=== PATIENT | male | born 1980 | race Caucasian/White ===

== ENCOUNTER 2017-03-20 15:07 | Emergency (ER) | payer OTHER, BC ==
[2017-03-20 15:48] VITALS: BP 142/84; PULSE 78; TEMP 97.7; BMI 23.0
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
== END 2017-03-20 17:49 | disposition home or self-care (01) ==
LOC: JERFT 15:07
DX: S16.1XXA Strain of muscle, fascia and tendon at neck level, initial encounter (principal); S00.83XA Contusion of other part of head, initial encounter; V49.49XA Driver injured in collision with other motor vehicles in traffic accident, initial encounter; Y92.488 Other paved roadways as the place of occurrence of the external cause; Y93.89 Activity, other specified
CPT/HCPCS: 70450-TC; 72125-TC; 99281-25